=== PATIENT | male | born 1950 | race Caucasian/White ===

== ENCOUNTER 2023-08-26 09:27 | Outpatient (CLI) | payer MEDICARE ==
--- NOTE | 2023-08-26 12:45 | CT Report ---
PROCEDURE: Low Dose Lung Cancer Screen INDICATIONS: SMOKER TECHNIQUE: A CT scan of the chest was performed. Intravenous contrast media was not administered. Images were re corded and evaluated at appropriate window settings. Reformats: axial MIP of the chest, coronal and s agittal. For radiation dose reduction, the following was used: automated exposure control, adjustment of mA and/or kV according to patient size. COMPARISON: None. FINDINGS: Image quality: Excellent. Lungs and pleura: No pleural effusions. No pneumothorax. Mild upper lobe predominant emphysematous c hanges. Biapical pleural-parenchymal scarring. Linear atelectasis versus scarring within the lower lo bes. No suspicious pulmonary nodules which require follow up. Mediastinum: Heart size is normal. No pericardial effusion. No large vessel abnormality. Atherosclero tic vascular calcifications of the aorta and branching vessels. No mediastinal adenopathy by size cri teria. Mild coronary artery calcifications. Small hiatal hernia. Chest wall and lower neck: Thyroid is unremarkable. No axillary or supraclavicular adenopathy by size . Bones: No aggressive osseous abnormality. Degenerative changes of the spine. Upper Abdomen: Multiple hepatic hypodensities, likely simple cysts.. IMPRESSION: No suspicious pulmonary nodules. Mild upper lobe predominant emphysematous changes. Lung RAD: 1 - Negative. Recommendation: Continue annual screening in 12 Months with LDCT Reviewed by: Liang Martell MD on 08/26/2023 12:44 PM PST Approved by: Liang Martell MD on 08/26/2023 12:44 PM PST Station ID: [id number]
== END 2023-08-26 09:28 | disposition home or self-care (01) ==
LOC: DI 09:27
PROVIDERS: ATTEND Family Medicine
DX: Z12.2 Encounter for screening for malignant neoplasm of respiratory organs (principal); F17.210 Nicotine dependence, cigarettes, uncomplicated; J43.9 Emphysema, unspecified

== ENCOUNTER 2023-09-23 10:35 | Outpatient (CLI) | payer MEDICARE ==
--- NOTE | 2023-09-23 11:29 | Sleep Patient Instructions ---
Sleep Center Visit Summary - Patient Visit Information Reason for Visit: Initial consultation - Patient Instructions Additional Instructions: You will continue with CPAP therapy with pressure set at 5-8 cmH2O. A supply prescription will be sent to a new DME supplier and I added a mask fitting. We encourage you to continue to try to lose weight. Please follow up with the sleep care office in 1 year. - Clinic Information Contact: [facility] [address] [place] [id number] [email or web address] T: [phone]
--- NOTE | 2023-09-23 11:39 | SLEEP CARE CONSULTATION ---
Information from patient questionnaire entered by Ashok Ballard. I have reviewed and concur with the information entered by Ashok Ballard. This document represents the service I personally performed and the decisions made by me, Nohemy Montenegro ARNP. History of Present Illness Service Date and Time: 09/23/2023 1035 Reason for Visit: New patient, sleep apnea on CPAP therapy Usual bedtime: 930PM Time it takes to fall asleep: 5MIN Observed to quit breathing while asleep: Yes Sleeps alone due to snoring: No Number of times waking at night: NOT VERY OFTEN Reasons for waking at night: denies: Choking, Gasping for air Toss, Turn, or Twitch while sleeping: No Recalls having dreams: No Usually gets out of bed at: 5AM Feels refreshed in the morning: No Morning headache: No Ever fallen asleep while driving: No Takes day naps: No Dreams during day naps: No Prior sleep studies: Yes (2017) Additional HPI information: TRUNG GUAMAN was previously diagnosed to have moderate, AHI 24, obstructive sleep apnea-hypopnea syndrome as seen in sleep study done in [place], [place] on 01/05/2018 and comes in today to establish care for CPAP therapy. - Parasomnia Symptoms Ever been unable to move upon waking from sleep: No Walks in sleep: No Talks in sleep: No Ever acted out dreams in sleep: No Ever felt weak in the knees when startled or emotional: No Bothered by creepy, crawly, restless sensations in legs: No Problems with memory or concentration: No CPAP Compliance Data - Data Reviewed with Patient Average duration of nightly device use: 6 hours 57 minutes Compliance rate %: 99 (90/90 days used) Current pressure setting (cmH2O): 5-8 Average residual AHI: 2.8 Central apnea: 0.1 Obstructive apnea: 2.3 Hypopnea: 0.3 Average large leak: 11.2 L/min Compliance data discussion: He has a ResMed Airsense 10. He gets his supplies online. He changes his mask cushion every 2 months. He has a backup mask if needed. He is using a ResMed Airfit F20, large cushion. Subjective Patient concerns: reports: mask discomfort (over top of nose). denies: aerophagia, air blowing in eyes, mask leak noise, condensation in mask/hose, nasal congestion, dry mouth, nose, throat, epistaxis Observed to snore while using device: No Current pressure setting perceived as: comfortable On therapy, patient: reports: sleeping better, awakening more refreshed, being more awake and alert during the day, more rested overall. denies: drowsiness while driving Initial [place] Sleepiness Scale score: 5 (09/12/23) Past Medical History Past Medical History: reports: Other (hernia) Social History The patient's occupation is a RE. Patient is and lives in . Have you smoked in the past 12 months: No Years of smokin Quit date: 1994 Alcohol use: Yes Alcohol amount and frequency: 2BEERS 2XPER MONTH Caffeine use: Yes Caffeine amount and frequency: 3-4CUPS DAILY Family History Family history of sleep disordered breathing: No Allergies and Home Medications Known drug allergies: No Drug allergies reviewed: Yes Home medication list reviewed: Yes Allergy and home medication list: Allergies No Known Drug Allergies Allergy (Verified 09/22/23 08:54) Home Medications Medication Instructions Recorded Confirmed Last Taken Type Ascorbic Acid [Vitamin C] See Rx Instructions .ROUTE .COMPLEX 09/23/23 09/23/23 Unknown History Cholecalciferol (Vitamin D3) See Rx Instructions .ROUTE .COMPLEX 09/23/23 09/23/23 Unknown History [Vitamin D3] Multivitamin See Rx Instructions .ROUTE .COMPLEX 09/23/23 09/23/23 Unknown History Review of Systems Weight loss over past 5 years: 25 Cardiovascular: denies: high blood pressure Gastrointestinal: denies: heartburn Neurological: denies: headaches Psychiatric: denies: anxiety, depression Ear/Nose/Throat: reports: tonsillectomy, wisdom teeth removed Musculoskeletal: reports: back pain Physical Exam Vital signs obtained and entered by: ASHOK Garnica MA Blood Pressure: 108/58 (LEF ARM) Cuff size: regular Heart Rate: 45 O2 Saturation: 97 Height: 5 ft 10.5 in Weight: 182 lb (with clothes) Body Mass Index: 25.7 BMI Classification: Overweight Neck circumference: 15.75 Heart: regular rate and rhythm Lungs: clear bilaterally Impression and Plan 1. Obstructive Sleep Apnea-Hypopnea Syndrome, moferate, with good treatment compliance and good apnea control. On CPAP therapy, the patient has better sleep quality and is more rested overall. Patient has been getting his supplies online but is willing to try a local DME supplier. He also has been having difficulty with his AirFit F20 fullface mask with soreness on the top of his nose. He says he tried some barriers but this did not help and he thinks he tried a hybrid full face mask but is not sure how it worked. I showed him an AirTouch F20 mask cushion that he could try to see if this reduces discomfort. He would also like to consider a nasal mask. I will write for a mask refitting to allow him to change mask if he can find a more comfortable fit. He agreed with plan of care. Patient's apnea severity and rationale for treatment to reduce apnea, improve sleep quality and reduce cardiovascular and cerebrovascular events was reviewed. * Continue auto CPAP pressure at 5-8 cmH2O * Transfer DME * Mask refitting * Update supplies * Notify me if snoring with mask or feeling that the pressure is too much or too little * Attempt to lose weight * Call this office if any problems using CPAP * Return for follow up in 12 months, or sooner if concerns arise Counseling Topics: Spare mask Prescriptions: Device supplies Follow up with Sleep Care in: 1 year Visit Type: In Office Time Spent with Patient (minutes): 36 Provider Statement: I spent 100% of the Face to Face Visit with the patient with greater than 50% spent counseling the patient and coordination of care.
[2023-09-23 11:42] VITALS: BP 108/58; O2SAT 97
== END 2023-09-23 10:36 | disposition home or self-care (01) ==
LOC: SC 10:35
PROVIDERS: ATTEND Nurse Practitioner Family
DX: G47.33 Obstructive sleep apnea (adult) (pediatric) (principal); E66.3 Overweight; Z68.25 Body mass index [BMI] 25.0-25.9, adult; Z87.891 Personal history of nicotine dependence
CPT/HCPCS: 99203; G0463; 99212

== ENCOUNTER 2023-11-26 09:15 | Outpatient (CLI) | payer MEDICARE ==
[2023-11-26] MEDS: ALBUTEROL 1 PUFF INH STA (11:06)
== END 2023-11-26 09:16 | disposition home or self-care (01) ==
LOC: RT 09:15
PROVIDERS: ATTEND Family Medicine
DX: J43.9 Emphysema, unspecified (principal)
CPT/HCPCS: 94060; 94729

== ENCOUNTER 2023-12-02 09:23 | Day surgery (SDC) | payer MEDICARE ==
[2023-12-02] MEDS: LACTATED RINGERS 1,000 ML IV ONE ×2 (09:30→12:04)
--- NOTE | 2023-12-02 11:04 | ANESTHESIA ---
Pre-Anesthesia VS, & Labs - Diagnosis screening - Procedure colonoscopy Vital Signs: Temp Pulse Resp BP Pulse Ox O2 Flow Rate 36.4 C L 78 16 112/70 95 12/02/23 09:30 12/02/23 09:30 12/02/23 09:30 12/02/23 09:30 12/02/23 09:30 Height: 6 ft Weight (kg): 82 kg Body Mass Index: 24.5 BMI Classification: Normal - NPO >8 hours Home Medications and Allergies Ascorbic Acid [Vitamin C] See Rx Instructions .ROUTE .COMPLEX 09/23/23 Cholecalciferol (Vitamin D3) [Vitamin D3] See Rx Instructions .ROUTE .COMPLEX 09/23/23 Multivitamin See Rx Instructions .ROUTE .COMPLEX 09/23/23 Allergies/Adverse Reactions: Allergies Allergy/AdvReac Type Severity Reaction Status Date / Time No Known Drug Allergies Allergy Verified 09/23/23 10:39 Anes History & Medical History - Anesthetic History Anesthesia Complications: reports: No previous complications Family history of Anesthesia Complications: Denies Family history of Malignant Hyperthermia: Denies - Medical History Cardiovascular: reports: None Pulmonary: reports: Sleep apnea Gastrointestinal: reports: None Urinary: reports: None Musculoskeletal: reports: None Endocrine/Autoimmune: reports: None Skin: reports: None Smoking Status: Former smoker Psychosocial: reports: Cannabis (occasional use) History of Cancer?: No - Surgical History Eyes Ears Nose Throat (EENT): reports: Tonsil/Adenoidectomy Gynecologic: reports: Other Exam General: Alert, Oriented x3, Cooperative Dental: WNL Mouth Openin Fingerbreadth Neck Mobility: Normal Mallampati classification: I Thyromental Distance: 4-6 cm Respiratory: Lungs clear Cardiovascular: Regular rate Plan Anesthesia Type: General, Total IV Consent for Procedure(s) Verified and Reviewed: Yes Code Status: Attempt Resuscitation ASA classification: 2-Mild systemic disease Is this case an emergency?: No
[2023-12-02] MEDS ORDERED: GLYCOPYRROLATE 1 MG/5 ML VIAL ONE (11:36)
[2023-12-02] MEDS: SIMETHICONE 40 MG/0.6 ML 15 ML BOTTLE PO ONE (11:46)
[2023-12-02] MEDS ORDERED: PROPOFOL 500 MG/50 ML 500 MG/50 ML VIAL ONE (11:56)
[2023-12-02 12:11] VITALS: O2SAT 98
[2023-12-02 12:49] VITALS: BP 110/61
--- NOTE | 2023-12-02 17:13 | ANESTHESIA POST OP EVALUATION ---
Anesthesia Post Eval - Post Anesthesia Eval Vitals: Last Vital Signs Temp 36.1 C L 12/02/23 12:04 Pulse 77 12/02/23 12:40 Resp 16 12/02/23 12:40 BP 110/61 12/02/23 12:40 Pulse Ox 98 12/02/23 12:40 O2 Flow Rate CV Function Including HR & BP: Stable Pain Control: Satisfactory Nausea & Vomiting: Negative Mental Status: Baseline Respiratory Status: Airway Patent Hydration Status: Satisfactory Anesthesia Complications: None
== END 2023-12-02 09:24 | disposition home or self-care (01) ==
LOC: SDS 09:23
PROVIDERS: ATTEND Surgery
DX: Z12.11 Encounter for screening for malignant neoplasm of colon (principal); K57.30 Diverticulosis of large intestine without perforation or abscess without bleeding; Z87.891 Personal history of nicotine dependence; Z86.16 Personal history of COVID-19; J43.9 Emphysema, unspecified; G47.33 Obstructive sleep apnea (adult) (pediatric)
CPT/HCPCS: A9270; G0121; J7120

== ENCOUNTER 2023-12-22 07:16 | Outpatient (CLI) | payer MEDICARE ==
[2023-12-22 07:55] LABS: ALBUMIN/GLOBULIN RATIO 1.4 (1.0-2.2); ALKALINE PHOSPHATASE 62 IU/L (42-121); ALT ALANINE AMINOTRANSFERASE 13 IU/L (10-60); AST ASPARTATE AMINOTRANSFERASE 17 IU/L (10-42); BILIRUBIN,TOTAL 0.9 mg/dL (0.2-1.0); BUN - BLOOD UREA NITROGEN 12 mg/dL (6-20); CALCIUM 9.5 mg/dL (8.5-10.3); CARBON DIOXIDE - CO2 31 mmol/L (21-32); CHLORIDE 105 mmol/L (101-111); CHOL/HDL RATIO 3.1 (<5.0); CHOLESTEROL 179 mg/dL; CREATININE 0.9 mg/dL (0.6-1.3); GFR - MDRD 83 (>89); GLUCOSE 100 mg/dL (74-104); HDL CHOLESTEROL 58 mg/dL; LDL CHOLESTEROL,CALCULATED 107 mg/dL; LDL/HDL RATIO 1.8 (<3.6); SODIUM 139 mmol/L (135-145); TOTAL PROTEIN 6.9 g/dL (6.4-8.9); TRIGLYCERIDES 71 mg/dL (48-352); VLDL CHOLESTEROL 14 mg/dL
[2023-12-22 08:09] LABS: THYROID STIMULATING HORMONE 3.04 uIU/mL (0.34-5.60)
[2023-12-22 08:17] LABS: FERRITIN 67.2 ng/mL (23.9-336.2)
[2023-12-22 11:23] LABS: ESTIMATED AVERAGE GLUCOSE 117 mg/dL (70-100); HEMOGLOBIN A1c% 5.7 % (4.27-6.07)
== END 2023-12-22 07:17 | disposition home or self-care (01) ==
LOC: LAB 07:16
PROVIDERS: ATTEND Family Medicine
DX: R53.83 Other fatigue (principal); Z13.6 Encounter for screening for cardiovascular disorders
CPT/HCPCS: 36415; 80053; 80061; 82607; 82728; 82746; 83036; 83721; 84443

== ENCOUNTER 2024-03-28 07:57 | Outpatient (CLI) | payer MEDICARE ==
[2024-03-28 08:27] LABS: CHOL/HDL RATIO 1.9 (<5.0); CHOLESTEROL 129 mg/dL; HDL CHOLESTEROL 69 mg/dL; LDL CHOLESTEROL,CALCULATED 47 mg/dL; LDL/HDL RATIO 0.7 (<3.6); TRIGLYCERIDES 64 mg/dL (48-352); VLDL CHOLESTEROL 13 mg/dL
[2024-03-28 13:40] LABS: ESTIMATED AVERAGE GLUCOSE 108 mg/dL (70-100); HEMOGLOBIN A1c% 5.4 % (4.27-6.07)
== END 2024-03-28 07:58 | disposition home or self-care (01) ==
LOC: LAB 07:57
PROVIDERS: ATTEND Family Medicine
DX: R73.03 Prediabetes (principal); E78.5 Hyperlipidemia, unspecified; Z12.5 Encounter for screening for malignant neoplasm of prostate
CPT/HCPCS: 36415; 80061; 83036; G0103; 83721; 84153